=== PATIENT | male | born 1930 | race Caucasian/White ===

== ENCOUNTER 2016-12-10 10:33 | Inpatient (IN) | payer OTHER ==
[2016-12-10] MEDS: Sodium Chloride 0.9% 1,000 ML PRIMARY IV ONE ×3 (10:33→13:45)
[2016-12-10] MEDS ORDERED: NORMAL SALINE 10 ML SYRINGE FLUSH IVP PRN ×2 (10:49→15:15)
[2016-12-10 10:59] LABS: BASOPHILS # (AUTO) 0.04 10*3/UL; BASOPHILS % (AUTO) 0.5 % (0-1); EOSINOPHILS # (AUTO) 0.01 10*3/UL; EOSINOPHILS % (AUTO) 0.1 % (0-8); HEMATOCRIT 44.4 % (42.0-52.0); HEMOGLOBIN 14.8 g/dL (14.0-18.0); LYMPHOCYTES # (AUTO) 0.99 10*3/uL; MEAN CORPUSCULAR HEMOGLOBIN 31.4 PG (27-31); MEAN CORPUSCULAR HGB CONC 33.3 g/dL (33-37); MEAN PLATELET VOLUME 9.7 FL (7.4-12.2); MONOCYTES # (AUTO) 0.87 10*3/UL (0.3-0.8); MONOCYTES % (AUTO) 11.4 % (5-15); NEUTROPHILS # (AUTO) 5.65 10*3/UL; NEUTROPHILS % (AUTO) 74.5 % (50-80); RED BLOOD COUNT 4.72 10^6/uL (4.70-6.10)
[2016-12-10 11:01] LABS: PLATELET MORPHOLOGY COMMENT NORMAL MORPHOLOGY (NORM); RBC MORPHOLOGY COMMENT NORMAL MORPHOLOGY (NORM); WBC MORPHOLOGY COMMENT NORMAL MORPHOLOGY (NORM)
--- NOTE | 2016-12-10 11:03 | EKG ---
[address] [address] Measurements Intervals Hundred Rate: 102 P: TN: 0 QRS: 38 QRSD: 81 T: 76 QT: 344 QTc: 403 Interpretive Statements ATRIAL FIBRILLATION WITH RAPID VENTRICULAR RESPONSE LOW QRS VOLTAGE IN EXTREMITY LEADS ABNORMAL RHYTHM ECG No previous ECG available for comparison Electronically Signed On 12-10-16 12:09:55 MDT by Pawel Larson [id number]
[2016-12-10 11:20] LABS: BUN/CREATININE RATIO 67.14 (6-20); C-REACTIVE PROTEIN 6.2 mg/dL (0.0-0.9); CALCIUM 8.3 mg/dL (8.7-10.7); MAGNESIUM 2.1 mg/dL (1.6-2.4); SERUM ALBUMIN 2.9 g/dL (3.5-4.8)
[2016-12-10] MEDS ORDERED: Metoclopramide Inj 10 MG/2 ML VIAL IVP ONE (11:40)
[2016-12-10] MEDS ORDERED: cefTRIAXone Inj 1 GM in Sodium Chloride 0.9% 100 ML IV ONE (12:46)
--- NOTE | 2016-12-10 12:53 | DI ---
AP CHEST X-RAY, 12/10/2016 11:12 AM : Clinical History: Confusion. Weakness. Previous Exam: 11/29/2007. There is no acute soft tissue or bony abnormality. Heart size is normal. There is a patchy infiltrate involving the right lower lobe probably in the medial basal segment as well as in the left lower lob e, and the bilateral involvement is suggestive of aspiration pneumonitis. There is no pleural effusio n. Mediastinal structures are normal. There are no pulmonary nodules. Reading: There are bilateral lower lobe infiltrates, and this distribution is consistent with aspiration pneum onitis.
--- NOTE | 2016-12-10 12:53 | DI ---
CT HEAD SCAN WITHOUT IV CONTRAST, 12/10/2016 10:50 AM : Clinical History: Confusion. Previous Exam: 10/22/2007. Scans are obtained from the foramen magnum to the vertex without IV contrast. The fourth ventricle is of normal size, shape, position and contour. The third and lateral ventricles are moderately dilated but are otherwise normal. There is no acute hemorrhagic or bland infarct. The re is moderate to moderately severe cerebellar and moderate cerebral atrophy as well as mild to moder ate brainstem atrophy. This diffuse atrophic involvement is typically associated with chronic alcohol or Dilantin usage. There are no extracerebral mantles or shift of the midline structures. Bone windo w evaluation is normal. The paranasal sinuses are normal. READIN. There is no evidence of an acute hemorrhagic or bland infarct. 2. 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
--- NOTE | 2016-12-10 13:52 | PDOC ---
General Adult HPI - General Chief Complaint: Nausea / Vomiting / Diarrhea Stated Complaint: ILL, N/V/D X SEVERAL DAYS Date Seen by Provider: 12/10/16 Time Seen by Provider: 10:35 Source: POSITIVE: Patient, Spouse Nurse's Notes Reviewed & Considered: Yes EMS Report Reviewed & Considered: Verbal - History of Present Illness Initial Comment: The patient is an 86-year-old male who is brought to the emergency room department by ambulance for evaluation. EMS was initially called to evaluate the patient and do a welfare check at home. He apparently has some underlying dementia and currently lives with his . He is apparently normally ambulatory and even drives with his 's assistance still baseline. For the past week or so his states that he has had multiple diarrhea stools and has been incontinent of stool several times. He also seems to be increasingly weak. His is concerned that he is dehydrated and states that he does not drink enough water. He has not had any vomiting and denies any current pain on arrival. His does report that he has had a junky sounding cough for the past 2 or 3 days as well. She states that he is generally healthy. He has had a previous ulcer that required a partial resection of his stomach and they removed his gallbladder at that time as well. She states that he does not take any prescription medications and that they generally don't take medication other than supplements and vitamins. She is not aware that he has been running a fever and has not had any recent falls or trauma. She states that they did take a trip to [place] yesterday. She does note that he has been more confused since he has been ill this week. Have you received a tetanus shot in the past 10 years?: Unknown - Patient Home Medications Home Medications: Home Medications NK [No Home Medications Reported] 12/10/16 - Patient Allergies Allergies/Adverse Reactions: Allergies Allergy/AdvReac Type Severity Reaction Status Date / Time No Known Allergies Allergy Verified 12/10/16 10:39 Past Medical History - heen HEENT History: Denies History Cardiovascular History: Denies History Respiratory History: Denies History Gastrointestinal History: Denies History Genitourinary History: Denies History Endocrine History: Denies History Musculoskeletal History: Denies History Prosthesis or Implant: No Neurological History: Dementia Blood Disorders: Denies History Psychiatric History: Denies History Male Reproductive History: Denies History Cancer History: Denies History In Past Year Been Physically Harmed or Verbally Threatened: No History of MDRO: Unknown Tobacco Use: Never Smoker Alcohol Use: Rarely Substance Use Type: None Previous Surgical History: No Significant Family History: No pertinent family hx Past Medical History Reviewed: Reviewed - No Changes ROS - Limitations ROS Limitations: Clinical Condition Constitution: DENIES: Chills, Fever Cardiovascular: DENIES: Chest Pain, Heart Palpitations, Edema Respiratory: REPORTS: Cough Non Productive. DENIES: Shortness Of Breath Neurological: REPORTS: Confusion, Weakness (Generalized weakness, no focal weakness). DENIES: Numbness Gastrointestinal: REPORTS: Diarrhea. DENIES: Abdominal Pain, Vomitting, Bloody Stools Endocrine: REPORTS: Fatigue Musculoskeletal: REPORTS: Denies MS Symptoms Genitourinary: REPORTS: Denies Symptoms Eyes: REPORTS: Denies Symptoms ENT: REPORTS: Denies Symptoms Skin: REPORTS: Rash (He does have redness to the perineum and genital region extending onto his legs) General Adult Exam - General Appearance General Appearance: POSITIVE: Other (The patient is awake and does answer questions, he does appear ill) - HEENT HEENT: POSITIVE: Head Inspection Nml, Eyes Inspection Nml, Pharynx Inspect. Nml , Dry Mucous Membranes - Neck Neck: POSITIVE: Normal Inspection. NEGATIVE: Lymphadenopathy - Respiratory Respiratory: POSITIVE: No Respiratory Distress, Other (He does have diminished breath sounds bilaterally and does have some rhonchi noted in the bases bilaterally as well as a junky sounding cough occasionally) - Cardiovascular Cardiovascular: POSITIVE: Regular Rate & Rhythm, No Murmur, No Gallop Peripheral Pulses: Dorsalis-pedis (R): 2+, Dorsalis-pedis (L): 2+ - Abdomen Abdomen: Soft: (All Quadrants), Denies Tenderness: (All Quadrants), No Distention: (All Quadrants) Additional Abdominal Details: Examination of the genitals and perineal region reveals marked excoriation and erythema and he was incontinent of stool here in the emergency department, the stool is loose brown stool. - Back Back: POSITIVE: Normal Inspection - Extremities Extremity: Normal ROM: (All Extremities), Normal Inspection: (All Extremities) - Neurological / Psychological Neurological: POSITIVE: Other (No focal neurologic deficits) General Adult Progress - Results Reviewed by me Lab Results:: Laboratory Results 12/10/16 12/10/16 Range/Units 10:57 12:13 WBC 7.60 (4.8-10.8) 10^3/uL RBC 4.72 (4.70-6.10) 10^6/uL Hgb 14.8 (14.0-18.0) g/dL Hct 44.4 (42.0-52.0) % MCV 94.1 H (80-90) FL MCH 31.4 H (27-31) PG MCHC 33.3 (33-37) g/dL RDW Std Deviation 49.7 (39-50) fL RDW Coeff of Mohan 14.7 H (11.5-14.5) % Plt Count 221 (140-350) 10*3/uL MPV 9.7 (7.4-12.2) FL Immature Gran % (Auto) 0.5 (0-5) % Neut % (Auto) 74.5 (50-80) % Lymph % (Auto) 13.0 (10-50) % [place] % (Auto) 11.4 (5-15) % Eos % (Auto) 0.1 (0-8) % Baso % (Auto) 0.5 (0-1) % Immature Gran # (Auto) 0.04 10*3/UL Neut # (Auto) 5.65 10*3/UL Lymph # (Auto) 0.99 10*3/uL [place] # (Auto) 0.87 H (0.3-0.8) 10*3/UL Eos # (Auto) 0.01 10*3/UL Baso # (Auto) 0.04 10*3/UL WBC Morphology Comment Normal morphology (NORM) Plt Morphology Comment Normal morphology (NORM) RBC Morph Comment Normal morphology (NORM) Sodium 142 (135-145) meq/L Potassium 4.4 (3.8-5.2) meq/L Chloride 109 (98-112) meq/L Carbon Dioxide 25 (23-33) meq/L Anion Gap 8 (5-20) BUN 47 H (7-22) mg/dL Creatinine 0.7 (0.70-1.50) mg/dL Estimated GFR (>60 ml/min/1.73m(2)) BUN/Creatinine Ratio 67.14 H (6-20) Glucose 96 (78-110) mg/dL Calculated Osmolality 305.0 H (267-292) mOsm/kg Lactic Acid 1.1 (0.70-2.10) MMOL/L Calcium 8.3 L (8.7-10.7) mg/dL Magnesium 2.1 (1.6-2.4) mg/dL Total Bilirubin 0.8 (0.3-1.2) mg/dL AST 68 H (21-57) IU/L ALT 53 (21-72) IU/L Alkaline Phosphatase 69 (38-126) IU/L Total Creatine Kinase 109 (55-170) IU/L Troponin I 0.020 (< 0.040) ng/mL C-Reactive Protein 6.2 H (0.0-0.9) mg/dL Total Protein 5.5 L (6.1-8.0) g/dL Albumin 2.9 L (3.5-4.8) g/dL Globulin 2.6 (2.50-4.10) g/dL Albumin/Globulin Ratio 1.10 L (1.3-2.0) mg/g Amylase 81 (30-110) U/L Lipase 138 (23-300) IU/L TSH 1.95 (0.2700-4.2000) uIU/mL - Patient's Progress MDM / ED Course: The patient's oxygen saturations were initially in the low 90s on room air however did dip into the upper 80s and he was placed on O2 per nasal cannula. Blood cultures and lactate were obtained with initial IV start. The patient did appear to be clinically dehydrated and received a 1 L bolus of normal saline. His chest x-ray reveals bilateral lower lobe infiltrates concerning for aspiration per radiologist. CT scan of his head did not reveal any acute findings only chronic atrophy. His blood work does show an elevated BUN as well as low protein and is otherwise unremarkable. His EKG does not show any acute ST segment or T-wave changes and his troponin is normal. At this point the patient does appear to be markedly dehydrated and weak. Stool studies are pending. He also has some evidence of likely aspiration pneumonia. After discussion with Dr. Phillips the patient will be started on Rocephin and Zithromax and preparations are being made to admit the patient for further treatment. These findings and recommendations were discussed with the patient as well as his and they're in agreement with this plan. - Consult Counseled: POSITIVE: Patient, Family, RE: Lab Results, RE: Radiology Results, RE : DX Patient Care Time - Estimated PCT Patient Care Time (In Minutes): 45 Vital Signs - Recent Vital Signs Vital Signs: Vital Signs (Last 8 hours) Temp Pulse Resp BP Pulse Ox 12/10/16 10:33 96.4 F L 118 H 18 124/84 90 - VS Reviewed Vital Signs Reviewed: Yes Discharge Clinical Impression: Diarrhea, Dehydration, Pneumonia Discharge Disposition: Admit to Inpatient Condition: Fair Date Decision to Admit to Inpatient: 12/10/16 Time Decision to Admit to Inpatient: 12:40
[2016-12-10] MEDS ORDERED: ONDANSETRON 4 MG/2 ML VIAL IVP PRN (15:15)
[2016-12-10] MEDS ORDERED: LIDOCAINE W/ SODIUM BICARB 0.5 ML SYR SUBD PRN (15:15)
[2016-12-10] MEDS ORDERED: ACETAMINOPHEN 500 MG TABLET PO PRN (15:15)
[2016-12-10] MEDS ORDERED: NYSTATIN 15 GM POWDER TOPICAL ONE (15:39)
--- NOTE | 2016-12-10 16:41 | PDOC ---
History and Physical - History of Present Illness Date and Time of Service: 12/10/2016, 1635 Chief Complaint: The ambulance came to pick me up, diarrhea History of Present Illness: This is an 86-year-old male that has dementia obviously on examination. He is accompanied by his after being brought in by ambulance. The story goes that the patient's neighbor has been concerned about her overall well-being lately and he called the ambulance to do a check on them. When they got to the house, they found a house in disarray, and unlivable. They brought the patient in, and decreased fluid intake. No fevers or chills are described. The patient denies any abdominal pain. He has assorted history of alcohol use until about 7 or 8 years ago when he had a peptic ulcer rupture and had a gallbladder removed as well. He has not had any alcohol since that time. The patient reportedly has a shuffling gait, but it was difficult to tease out any history as to whether or not the patient has dyskinesia consistent with Parkinson's disease. All that being said, the patient cannot provide any history and is limited because of his dementia. A CT of the head was done in the emergency room and it was negative for any acute bleed. Chest x-ray was also done and it appeared negative. The patient was noted on examination to have severe excoriations of the testicular area, groin, perirectal area and lower back consistent with yeast dermatitis. Exam did not reveal epididymitis. Past Medical History Medical History: 1. Peptic ulcer disease status post perforation repair. 2. Dementia. 3. Urinary incontinence, probably related to BPH Surgical History: 1. Peptic ulcer repair. 2. Cholecystectomy. 3. Per my review of the medical history, the patient had a TURP procedure of some type Pertinent Family History: Father of prostate cancer and neither the patient nor his know what his mother passed on from. Past Social History: Does not smoke. for over 40 years. No children. No family other than his . Had a history of alcohol use but has not had any alcohol in the last 7 years or so. Tobacco Use: Never Smoker Substance Use Type: None Alcohol Use: None Medication / Allergies Home Medications: Home Medications Medication Instructions Recorded Confirmed Type NK [No Home Medications Reported] 12/10/16 12/10/16 History Allergies/Adverse Reactions: Allergies Allergy/AdvReac Type Severity Reaction Status Date / Time No Known Allergies Allergy Verified 12/10/16 15:16 Review of Systems - Review of Systems ROS Unobtainable: Due to Mental Status (There is very difficult to obtain a review systems due to patient having underlying dementia. Information I obtained was in combination with the patient, and his .) - Constitutional Constitutional: REPORTS: General Health Poor, Malaise, Other (Decreased appetite , decreased fluid intake) - Gastrointestinal Gastrointestinal / Abdominal: REPORTS: Diarrhea - Genitourinary Genitourinary: REPORTS: Pain (Primarily in the testicular area and groin area.) , Incontinence - Neurological Neurologic: REPORTS: Difficulty Walking (Shuffling gait) Exam - Vitals Vital Signs: Vital Signs Temperature 97.0 F Temperature Source Temporal Artery Scan Pulse Rate [Pulse Oximeter 84 Right] Respiratory Rate 18 Blood Pressure [Left Arm] 121/79 Pulse Ox 92 Oxygen Delivery Method Room Air Height 5 ft 10 in Weight 150 lb - General General Appearance: POSITIVE: No Acute Distress, Cooperative - Head Head Exam: POSITIVE: Normal Inspection, Normocephalic, Atraumatic - Eye Eye Exam: POSITIVE: No Scleral Icterus - ENT ENT Exam: POSITIVE: Mucous Membranes Dry - Neck Neck Exam: POSITIVE: Normal Inspection, No Tenderness, No Thyromegaly - Respiratory Respiratory Exam: POSITIVE: Clear to Auscultation - Bilaterally, Breathing Non Labored - Cardiovascular Cardiovascular Exam: POSITIVE: RRR, No Murmur, No Clicks, No Gallops, No Rubs, No JVD - GI/Abdominal GI/Abdominal Exam: POSITIVE: Normal Bowel Sounds, Non Tender, Non Distended, Soft - Rectal Rectal Exam: POSITIVE: Deferred - External Exam: POSITIVE: Erythema, Ecchymosis Exam: POSITIVE: Scrotal Swelling, Testicular Veritical Lie - Extremities Extremities Exam: POSITIVE: No Edema Present, No Cyanosis Present, Clubbing Present - Back Back Exam: POSITIVE: No CVA Tenderness, Rash Noted - Neurological Neurological Exam: POSITIVE: Alert, No Facial Droop, Speech Intact / Clear, Moves All Extremities Equally - Psychiatric Psychiatric Exam: POSITIVE: Flat Affect - Integumentary Integumentary Exam: POSITIVE: Rash (Consistent with yeast dermatitis.) Results - Labs CBC and BMP: 12/10/16 10:57 12/10/16 10:57 Labs - Last 24 Hours: Laboratory Results 12/10/16 12/10/16 Range/Units 10:57 12:13 WBC 7.60 (4.8-10.8) 10^3/uL RBC 4.72 (4.70-6.10) 10^6/uL Hgb 14.8 (14.0-18.0) g/dL Hct 44.4 (42.0-52.0) % MCV 94.1 H (80-90) FL MCH 31.4 H (27-31) PG MCHC 33.3 (33-37) g/dL RDW Std Deviation 49.7 (39-50) fL RDW Coeff of Mohan 14.7 H (11.5-14.5) % Plt Count 221 (140-350) 10*3/uL MPV 9.7 (7.4-12.2) FL Immature Gran % (Auto) 0.5 (0-5) % Neut % (Auto) 74.5 (50-80) % Lymph % (Auto) 13.0 (10-50) % [place] % (Auto) 11.4 (5-15) % Eos % (Auto) 0.1 (0-8) % Baso % (Auto) 0.5 (0-1) % Immature Gran # (Auto) 0.04 10*3/UL Neut # (Auto) 5.65 10*3/UL Lymph # (Auto) 0.99 10*3/uL [place] # (Auto) 0.87 H (0.3-0.8) 10*3/UL Eos # (Auto) 0.01 10*3/UL Baso # (Auto) 0.04 10*3/UL WBC Morphology Comment Normal morphology (NORM) Plt Morphology Comment Normal morphology (NORM) RBC Morph Comment Normal morphology (NORM) Sodium 142 (135-145) meq/L Potassium 4.4 (3.8-5.2) meq/L Chloride 109 (98-112) meq/L Carbon Dioxide 25 (23-33) meq/L Anion Gap 8 (5-20) BUN 47 H (7-22) mg/dL Creatinine 0.7 (0.70-1.50) mg/dL Estimated GFR (>60 ml/min/1.73m(2)) BUN/Creatinine Ratio 67.14 H (6-20) Glucose 96 (78-110) mg/dL Calculated Osmolality 305.0 H (267-292) mOsm/kg Lactic Acid 1.1 (0.70-2.10) MMOL/L Calcium 8.3 L (8.7-10.7) mg/dL Magnesium 2.1 (1.6-2.4) mg/dL Total Bilirubin 0.8 (0.3-1.2) mg/dL AST 68 H (21-57) IU/L ALT 53 (21-72) IU/L Alkaline Phosphatase 69 (38-126) IU/L Total Creatine Kinase 109 (55-170) IU/L Troponin I 0.020 (< 0.040) ng/mL C-Reactive Protein 6.2 H (0.0-0.9) mg/dL Total Protein 5.5 L (6.1-8.0) g/dL Albumin 2.9 L (3.5-4.8) g/dL Globulin 2.6 (2.50-4.10) g/dL Albumin/Globulin Ratio 1.10 L (1.3-2.0) mg/g Amylase 81 (30-110) U/L Lipase 138 (23-300) IU/L TSH 1.95 (0.2700-4.2000) uIU/mL - EKG Data -: EKG Interpreted by Me - EKG Data EKG Interpretation: Other (Could be atrial fibrillation. P waves are difficult to see. Sounded regular on exam.) - Imaging Status: Image Reviewed by Me (I looked at the head CT, I think it's consistent with atrophy, but no acute bleed. I looked at the chest x-ray, it does appear that there is a positive psoas sign along the right heart border that could be consistent with a pneumonia in the lower lobe.) AFib Stroke Risk Screening - AFib Stroke Risk (CHADS-VASc) Atrial Fibrillation Ischemic Stroke Risk Factors: Age 75 years or older (This was noted on EKG. We will discuss with the patient and determine best medication for him.) CHADS-VASc Score (A-Fib Stroke Risk Score): 2 CHADS-VASc Risk: High Risk Assessment and Plan - Patient Problems (1) Pneumonia Current Visit: Yes Status: Acute Qualifiers: Pneumonia type: due to unspecified organism Laterality: right Lung location: lower lobe of lung Qualified Description: Pneumonia of right lower lobe due to infectious organism Qualifier Code(s): (J18.1) Lobar pneumonia, unspecified organism (2) Dehydration Current Visit: Yes Status: Acute (3) Diarrhea Current Visit: Yes Status: Acute Qualifiers: Diarrhea type: unspecified type Qualified Description: Diarrhea, unspecified type Qualifier Code(s): (R19.7) Diarrhea, unspecified (4) Dementia Current Visit: Yes Status: Acute Qualifiers: Dementia type: Alzheimer's disease Alzheimer's disease onset: late- onset Dementia behavioral disturbance: without behavioral disturbance Qualified Description: Late onset Alzheimer's disease without behavioral disturbance Qualifier Code(s): (G30.1) Alzheimer's disease with late onset , (F02.80) Dementia in other diseases classified elsewhere without behavioral disturbance (5) Urinary incontinence Current Visit: Yes Status: Acute Qualifiers: Urinary Incontinence type: unspecified incontinence Qualified Description: Urinary incontinence, unspecified type Qualifier Code(s): ( R32) Unspecified urinary incontinence - Assessment / Plan Additional Assessment/Plan Details: Admit the patient, start antibiotics for pneumonia and this may also cover potential infectious diarrhea strains. Will also get stool studies. Get a CT scan of the abdomen and pelvis to make sure there is no explanation for the diarrhea. Get flu studies. Oxygen when necessary. For the yeast dermatitis start nystatin powder. I discussed CODE STATUS with the patient and his in detail going to the risks and benefits of the procedure and after hearing the potential risks both the patient and his state they would not want the procedure done. He is DO NOT RESUSCITATE. Reportedly, the home is not habitable at this time, and Department of family services is now involved. We'll have case management work with the patient. We discussed plan above with the patient, his , and they agreed.
[2016-12-10] MEDS ORDERED: Influenza 16-17 Vaccine(4yrs+) 45 MCG/0.5 ML SYRINGE IM ONE (16:56)
[2016-12-10] MEDS ORDERED: PNEUMOCOCCAL 23 VACCINE 25 MCG/0.5 ML VIAL IM SCH (17:00)
[2016-12-10] MEDS: HEPARIN 5000 UNIT/1 ML SUBCUT SCH (18:15)
[2016-12-10 18:35] LABS: BILIRUBIN,URINE NEGATIVE (NEG); CLARITY,URINE CLEAR (CLEAR); COLOR,URINE YELLOW; GLUCOSE, URINE (UA) NEGATIVE (NEG); NITRATE,URINE NEGATIVE (NEG); OCCULT BLOOD,URINE Trace-intact (NEG); PROTEIN,URINE 30 mg/dl (NEG); UROBILINOGEN,URINE 0.2 EU/dL (0.2)
[2016-12-10 18:36] LABS: URINE SAMPLE TYPE CATH SPECIMEN
[2016-12-10 18:43] LABS: RBC,URINE 0-3 /hpf; SQUAMOUS EPITHELIAL CELL,UR RARE; WBC,URINE 0-2
--- NOTE | 2016-12-10 20:29 | DI ---
CT ABDOMEN SCAN WITHOUT IV CONTRAST, 12/10/2016 6:48 PM : Clinical History: Diarrhea. Previous Exam: 10/22/2007. Scans are performed from the lower lung bases through the liver and kidneys without IV contrast. Sagi ttal and coronal reformatted images are generated. Comment: This study was initially ordered as a CT scan of the abdomen and pelvis with IV contrast. Ho wever, this patient has no peripheral IV access and the exam was changed to a study without IV contra st. There are bilateral lower lobe infiltrates, predominantly in the posterior basal segment of the right lower lobe and also of the left lower lobe. Both lower lobes are associated with bronchiectasis. The re is a small right pleural effusion. 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 The liver is normal. The patient is status post cholecystectomy. There is no abno rmality of the spleen, pancreas, and adrenal glands. Both kidneys are normal in size, shape, position and contour. There is no hydronephrosis or hydroureter. Bilateral small peripelvic renal cysts are p resent. No renal or ureteral calculi are present. There is a large laminated bladder calculus that me asures 30 x 30 x 40 mm, and this was not present on the previous exam. There are no abnormal retrocru ral or periaortic nodes. No ascites is present. READIN. Normal CT abdomen scan. 2. Bilateral lower lobe pneumonia with a small right pleural effusion. These findings are consistent with aspiration pneumonia. There is also bilateral lower lobe chronic bronchiectasis. 3. Both kidneys and ureters are normal. There is a large 30 x 30 x 40 mm bladder calculus that is ne w since the previous exam. CT PELVIS SCAN WITHOUT IV CONTRAST, 12/10/2016 6:48 PM : Clinical History: See above. Previous Exam: 10/22/2007. Scans are performed from the inferior margin of the liver and kidneys to the symphysis pubis without IV contrast. There is no free fluid collection and there is no adenopathy. The appendix is normal. The small bowel , terminal ileum, and ileocecal valve are normal. The colon is also normal. There are no hernias. The re is osteoporosis. READING: Normal CT pelvis scan.
[2016-12-10] MEDS: NYSTATIN 15 GM POWDER TOPICAL SCH (21:17)
[2016-12-11] MEDS: HEPARIN 5000 UNIT/1 ML SUBCUT SCH ×2 (00:12→08:01)
[2016-12-11 06:40] LABS: BASOPHILS # (AUTO) 0.02 10*3/UL; BASOPHILS % (AUTO) 0.3 % (0-1); EOSINOPHILS # (AUTO) 0.06 10*3/UL; EOSINOPHILS % (AUTO) 0.9 % (0-8); HEMATOCRIT 43.8 % (42.0-52.0); HEMOGLOBIN 14.5 g/dL (14.0-18.0); LYMPHOCYTES # (AUTO) 1.19 10*3/uL; MEAN CORPUSCULAR HEMOGLOBIN 31.3 PG (27-31); MEAN CORPUSCULAR HGB CONC 33.1 g/dL (33-37); MEAN PLATELET VOLUME 9.9 FL (7.4-12.2); MONOCYTES # (AUTO) 0.85 10*3/UL (0.3-0.8); MONOCYTES % (AUTO) 12.7 % (5-15); NEUTROPHILS # (AUTO) 4.49 10*3/UL; NEUTROPHILS % (AUTO) 67.3 % (50-80); RED BLOOD COUNT 4.64 10^6/uL (4.70-6.10)
[2016-12-11 06:52] LABS: PLATELET MORPHOLOGY COMMENT NORMAL MORPHOLOGY (NORM); RBC MORPHOLOGY COMMENT NORMAL MORPHOLOGY (NORM); WBC MORPHOLOGY COMMENT NORMAL MORPHOLOGY (NORM)
[2016-12-11 06:59] LABS: BUN/CREATININE RATIO 41.42 (6-20); CALCIUM 7.8 mg/dL (8.7-10.7)
[2016-12-11 08:27] VITALS: RESP 18
[2016-12-11] MEDS ORDERED: AZITHROMYCIN 250 MG TABLET PO SCH (09:00)
[2016-12-11] MEDS ORDERED: TRIAMCINOLONE ACETONIDE 0.1% 15 GM OINT TOPICAL SCH (09:00)
[2016-12-11] MEDS: NYSTATIN 15 GM POWDER TOPICAL SCH (09:54)
[2016-12-11] MEDS ORDERED: METOPROLOL SUCCINATE 25 MG SR 24H TABLET PO ONE (11:27)
[2016-12-11] MEDS ORDERED: PANTOPRAZOLE 40 MG TABLET PO ONE (11:27)
[2016-12-11 11:48] VITALS: TEMP 97.8
[2016-12-11] MEDS ORDERED: cefTRIAXone Inj 1 GM in Lidocaine Inj 1% 2.1 ML IM SCH (12:00)
[2016-12-11] MEDS ORDERED: Influenza 16-17 Vaccine(4yrs+) 45 MCG/0.5 ML SYRINGE IM ONE (12:11)
[2016-12-11] MEDS ORDERED: cefTRIAXone Inj 1 GM in Sodium Chloride 0.9% 100 ML IV SCH (12:30)
[2016-12-11] MEDS ORDERED: cefTRIAXone Inj 2 GM in Sodium Chloride 0.9% 100 ML IV SCH (12:30)
--- NOTE | 2016-12-11 14:28 | DCSUMMARY ---
Hospitalization Summary Admit Date: 12/10/16 Discharge Date: 12/11/16 Primary Diagnosis:: bladder stone, pneumonia, dementia Hospital Course: This is an 86-year-old male that was brought in after a neighbor called to have people check on the welfare of the patient and his . The patient had had some diarrhea that had been fairly persistent and of fairly bad rash. He was brought in by ambulance, admitted, and was clearly demented. Workup revealed an aspiration pneumonia versus acne acquired pneumonia bilaterally. He is placed on Rocephin and Zithromax for that. In addition, due to the diarrhea complaints and did do a CT scan of the abdomen and pelvis and a CT scan of the pelvis showed a large bladder stone. We also found atrial fibrillation, newly recognized but rate controlled at this point. He had a history of prior peptic ulcer disease that required surgery, however that was in 2007 and his risk of stroke is around 2.2% by CHADVASC 2 score. He has a yeast dermatitis in the perineal region that his states has already started to improve with local topical nystatin powder. Given this constellation of findings, and the bladder stone, and the complex social situation, I spoke with the urologist in [place] who stated that if the hospitalist was willing to admit, we could consider transfer there so the bladder stone could be treated. I think it puts him at a I think the bladder stone may put the patient at risk of urine infection and sepsis and so forth, and it is worth treating that, and I told the hospitalist today that we would be willing to take the patient back on her swing bed at the conclusion of the hospital stay there. So the current status of each problem is as follows: 1. Pneumonia, on Rocephin and Zithromax, day 2. Minimal oxygen requirement of 1 L per nasal cannula and satting at 93%. 2. Bladder stone, probably needs urologic rate Of the stone. The patient has had worsening urinary incontinence it's been complained about several times in the clinic, and this could be the reason. 3. Atrial fibrillation, I suspect chronic intermittent but don't know for sure. Placed on Toprol XL 25 mg daily, aspirin for stroke prevention. Her history of peptic ulcer disease, I'm also starting Protonix to help give some GI protection. 4. Yeast dermatitis, this is improving with nystatin powder. I do not think there is epididymitis. He did not have overt testicular pain with palpation. 5. Dementia, advanced. Ultimately, it is our hope here that the housing situation will be fixed for the patient and his , and although he would make a much better candidate for half-way, I don't think that the patient and his will opt for that and it may be that we can do some strengthening and conditioning on our swing bed at the conclusion of his hospital stay in [place] and then transition to the home. I greatly appreciate the assistance of both Dr. Martinez and the hospitalist today. Spoke with the family in detail and they are in agreement with the plan. Today, no complaints of chest pain, no complaints of shortness breath, poor appetite. No nausea or vomiting and diarrhea has improved and the rash has already improved. Assessment and Plan: 1. As per discharge assessments noted 2. Disposition: Patient is discharged to [facility] 3. Condition on discharge, stable and improved. However, based on the presence of the bladder stone and other issues, his condition certainly could deteriorate. 4. Diet: regular diet 5. Activities: As per [facility] 6. Follow-Up: 1. Dr. Rivers postdischarge from [facility] 2. 7. Medications at the Time of Discharge: Active Medications Generic Name Dose Route Start Last Admin Trade Name Freq PRN Reason Stop Dose Admin Acetaminophen 500 mg 12/10/16 15:15 Tylenol PO Q4H PRN Fever Aspirin 81 mg 12/12/16 09:00 Aspirin Ec PO DAILY TJ Azithromycin 250 mg 12/11/16 09:00 12/11/16 09:53 Zithromax PO 12/14/16 23:59 250 mg DAILY TJ Administration Heparin Sodium (Porcine) 5,000 unit 12/10/16 15:15 12/11/16 08:01 Heparin Inj SUBCUT 5,000 unit Q8H TJ Administration Sodium Chloride 25 mls @ 200 mls/hr 12/10/16 15:15 Normal Saline 0.9% IV .Post Infusion PRN No Primary IV for Flush ONLY Potassium Chloride/Sodium Chloride 1,000 mls @ 125 mls/hr 12/10/16 15:15 08:01 Pot Chl 20meq + Ns PRIMARY IV 125 mls/hr .Q8H TJ Administration Ceftriaxone Sodium 2 gm/ 100 mls @ 200 mls/hr 12/11/16 12:30 12/11/16 12:20 Sodium Chloride IV 200 mls/hr Q24H TJ Administration Lidocaine HCl 0.5 ml 12/10/16 15:15 Lidocaine Buffered Inj SUBD ONCE PRN IV Starts Metoprolol Succinate 25 mg 12/12/16 09:00 Toprol Xl PO DAILY TJ Nystatin 1 applic 12/10/16 21:00 12/11/16 09:54 Mycostatin Powder TOPICAL 1 applic BID TJ Administration Ondansetron HCl 4 mg 12/10/16 15:15 Zofran Inj IVP Q6H PRN NAUSEA / VOMITING Pantoprazole Sodium 40 mg 12/12/16 07:00 Protonix PO AC BK TJ Pneumococcal Polyvalent Vaccine 0.5 ml 12/10/16 17:00 Pneumovax 23 Inj IM .ONCE TJ Sodium Chloride 5 - 20 ml 12/10/16 15:15 12/10/16 18:14 Saline Flush IVP 10 ml BID PRN Administration Flush Triamcinolone Acetonide 1 applic 12/11/16 09:00 12/11/16 09:53 Kenalog Ointment 0.1% TOPICAL 1 applic DAILY TJ Administration 8. Time, care, counseling and coordination of care for this discharge is greater than 30 minutes. Exam - Vitals Vital Signs: Vital Signs Temperature 97.8 F Temperature Source Temporal Artery Scan Pulse Rate [Apical] 88 Pulse Rate [Pulse Oximeter 101 Right] Pulse Rate 108 Respiratory Rate 18 Blood Pressure [Right Arm] 106/62 Blood Pressure [Left Arm] 118/73 Pulse Ox 93 Oxygen Flow Rate 1 Oxygen Delivery Method Nasal Cannula Height 5 ft 10 in Weight 152 lb 3.2 oz - General General Appearance: POSITIVE: No Acute Distress, Cooperative - Eye Eye Exam: POSITIVE: No Scleral Icterus - ENT ENT Exam: POSITIVE: Mucous Membranes Dry - Respiratory Respiratory Exam: POSITIVE: Breathing Non Labored, Coarse Breath Sounds - Cardiovascular Cardiovascular Exam: POSITIVE: No Murmur, No Clicks, No Gallops, No Rubs, PMI Non-Displaced (Consistent with atrial fibrillation), Irregular Rhythm, No JVD - GI/Abdominal GI/Abdominal Exam: POSITIVE: Normal Bowel Sounds, Non Tender, Non Distended, Soft - Extremities Extremities Exam: POSITIVE: No Clubbing Present, No Edema Present, No Cyanosis Present - Neurological Neurological Exam: POSITIVE: Alert, No Facial Droop, Speech Intact / Clear, Moves All Extremities Equally Data Perinent Studies: Laboratory Results 12/10/16 12/10/16 12/10/16 Range/Units 10:57 12:13 18:35 WBC 7.60 (4.8-10.8) 10^3/uL RBC 4.72 (4.70-6.10) 10^6/uL Hgb 14.8 (14.0-18.0) g/dL Hct 44.4 (42.0-52.0) % MCV 94.1 H (80-90) FL MCH 31.4 H (27-31) PG MCHC 33.3 (33-37) g/dL RDW Std Deviation 49.7 (39-50) fL RDW Coeff of Mohan 14.7 H (11.5-14.5) % Plt Count 221 (140-350) 10*3/uL MPV 9.7 (7.4-12.2) FL Immature Gran % (Auto) 0.5 (0-5) % Neut % (Auto) 74.5 (50-80) % Lymph % (Auto) 13.0 (10-50) % [place] % (Auto) 11.4 (5-15) % Eos % (Auto) 0.1 (0-8) % Baso % (Auto) 0.5 (0-1) % Immature Gran # (Auto) 0.04 10*3/UL Neut # (Auto) 5.65 10*3/UL Lymph # (Auto) 0.99 10*3/uL [place] # (Auto) 0.87 H (0.3-0.8) 10*3/UL Eos # (Auto) 0.01 10*3/UL Baso # (Auto) 0.04 10*3/UL WBC Morphology Comment Normal morphology (NORM) Plt Morphology Comment Normal morphology (NORM) RBC Morph Comment Normal morphology (NORM) Sodium 142 (135-145) meq/L Potassium 4.4 (3.8-5.2) meq/L Chloride 109 (98-112) meq/L Carbon Dioxide 25 (23-33) meq/L Anion Gap 8 (5-20) BUN 47 H (7-22) mg/dL Creatinine 0.7 (0.70-1.50) mg/dL Estimated GFR (>60 ml/min/1.73m(2)) BUN/Creatinine Ratio 67.14 H (6-20) Glucose 96 (78-110) mg/dL Calculated Osmolality 305.0 H (267-292) mOsm/kg Lactic Acid 1.1 (0.70-2.10) MMOL/L Calcium 8.3 L (8.7-10.7) mg/dL Magnesium 2.1 (1.6-2.4) mg/dL Total Bilirubin 0.8 (0.3-1.2) mg/dL AST 68 H (21-57) IU/L ALT 53 (21-72) IU/L Alkaline Phosphatase 69 (38-126) IU/L Total Creatine Kinase 109 (55-170) IU/L Troponin I 0.020 (< 0.040) ng/mL C-Reactive Protein 6.2 H (0.0-0.9) mg/dL Total Protein 5.5 L (6.1-8.0) g/dL Albumin 2.9 L (3.5-4.8) g/dL Globulin 2.6 (2.50-4.10) g/dL Albumin/Globulin Ratio 1.10 L (1.3-2.0) mg/g Amylase 81 (30-110) U/L Lipase 138 (23-300) IU/L TSH 1.95 (0.2700-4.2000) uIU/mL Ur Collection Type Cath specimen Urine Color Yellow Urine Clarity Clear (CLEAR) Urine pH 6.0 (5.0-8.5) Ur Specific [place] 1.020 (1.005-1.030) Urine Protein 30 (NEG) mg/dl Urine Glucose (UA) Negative (NEG) mg/dL Urine Ketones 15 (NEG) Urine Occult Blood Trace-intact H (NEG) Urine Nitrate Negative (NEG) Urine Bilirubin Negative (NEG) Urine Urobilinogen 0.2 (0.2) EU/dL Ur Leukocyte Esterase Negative (NEG) Urine RBC 0-3 (NONE) /hpf Urine WBC 0-2 (NONE) Ur Squamous Epith Cells Rare (NONE) Ur Renal Epithelial Cell None (NONE) Urine Crystals None Urine Bacteria None (NONE) Urine Casts None (NONE) Urine Mucus None (NONE) Urine Trichomonas None (NONE) Urine Yeast None (NONE) Ur Culture Indicated? Culture not set 12/11/16 Range/Units 05:38 WBC 6.68 (4.8-10.8) 10^3/uL RBC 4.64 L (4.70-6.10) 10^6/uL Hgb 14.5 (14.0-18.0) g/dL Hct 43.8 (42.0-52.0) % MCV 94.4 H (80-90) FL MCH 31.3 H (27-31) PG MCHC 33.1 (33-37) g/dL RDW Std Deviation 49.4 (39-50) fL RDW Coeff of Mohan 14.8 H (11.5-14.5) % Plt Count 229 (140-350) 10*3/uL MPV 9.9 (7.4-12.2) FL Immature Gran % (Auto) 1.0 (0-5) % Neut % (Auto) 67.3 (50-80) % Lymph % (Auto) 17.8 (10-50) % [place] % (Auto) 12.7 (5-15) % Eos % (Auto) 0.9 (0-8) % Baso % (Auto) 0.3 (0-1) % Immature Gran # (Auto) 0.07 10*3/UL Neut # (Auto) 4.49 10*3/UL Lymph # (Auto) 1.19 10*3/uL [place] # (Auto) 0.85 H (0.3-0.8) 10*3/UL Eos # (Auto) 0.06 10*3/UL Baso # (Auto) 0.02 10*3/UL WBC Morphology Comment Normal morphology (NORM) Plt Morphology Comment Normal morphology (NORM) RBC Morph Comment Normal morphology (NORM) Sodium 145 (135-145) meq/L Potassium 3.9 (3.8-5.2) meq/L Chloride 113 H (98-112) meq/L Carbon Dioxide 22 L (23-33) meq/L Anion Gap 10 (5-20) BUN 29 H (7-22) mg/dL Creatinine 0.7 (0.70-1.50) mg/dL Estimated GFR (>60 ml/min/1.73m(2)) BUN/Creatinine Ratio 41.42 H (6-20) Glucose 74 L (78-110) mg/dL Calculated Osmolality 304.0 H (267-292) mOsm/kg Lactic Acid (0.70-2.10) MMOL/L Calcium 7.8 L (8.7-10.7) mg/dL Magnesium (1.6-2.4) mg/dL Total Bilirubin (0.3-1.2) mg/dL AST (21-57) IU/L ALT (21-72) IU/L Alkaline Phosphatase (38-126) IU/L Total Creatine Kinase (55-170) IU/L Troponin I (< 0.040) ng/mL C-Reactive Protein (0.0-0.9) mg/dL Total Protein (6.1-8.0) g/dL Albumin (3.5-4.8) g/dL Globulin (2.50-4.10) g/dL Albumin/Globulin Ratio (1.3-2.0) mg/g Amylase (30-110) U/L Lipase (23-300) IU/L TSH (0.2700-4.2000) uIU/mL Ur Collection Type Urine Color Urine Clarity (CLEAR) Urine pH (5.0-8.5) Ur Specific [place] (1.005-1.030) Urine Protein (NEG) mg/dl Urine Glucose (UA) (NEG) mg/dL Urine Ketones (NEG) Urine Occult Blood (NEG) Urine Nitrate (NEG) Urine Bilirubin (NEG) Urine Urobilinogen (0.2) EU/dL Ur Leukocyte Esterase (NEG) Urine RBC (NONE) /hpf Urine WBC (NONE) Ur Squamous Epith Cells (NONE) Ur Renal Epithelial Cell (NONE) Urine Crystals Urine Bacteria (NONE) Urine Casts (NONE) Urine Mucus (NONE) Urine Trichomonas (NONE) Urine Yeast (NONE) Ur Culture Indicated? Patient Problems - Patient Problem List (1) Bladder stone Current Visit: Yes Status: Acute (2) Pneumonia Current Visit: Yes Status: Acute Qualifiers: Pneumonia type: due to unspecified organism Laterality: right Lung location: lower lobe of lung Qualified Description: Pneumonia of right lower lobe due to infectious organism Qualifier Code(s): (J18.1) Lobar pneumonia, unspecified organism (3) Atrial fibrillation Current Visit: Yes Status: Acute Comment: Suspect that this is chronic Qualifiers: Atrial fibrillation type: chronic Qualified Description: Chronic atrial fibrillation Qualifier Code(s): (I48.2) Chronic atrial fibrillation (4) Dehydration Current Visit: Yes Status: Resolved (5) Diarrhea Current Visit: Yes Status: Resolved Qualifiers: Diarrhea type: unspecified type Qualified Description: Diarrhea, unspecified type Qualifier Code(s): (R19.7) Diarrhea, unspecified (6) Dementia Current Visit: Yes Status: Acute Qualifiers: Dementia type: Alzheimer's disease Alzheimer's disease onset: late- onset Dementia behavioral disturbance: without behavioral disturbance Qualified Description: Late onset 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
[2016-12-12] MEDS ORDERED: PANTOPRAZOLE 40 MG TABLET PO SCH (07:00)
[2016-12-12] MEDS ORDERED: METOPROLOL SUCCINATE 25 MG SR 24H TABLET PO SCH (09:00)
[2016-12-12] MEDS ORDERED: ASPIRIN EC 81 MG TABLET PO SCH (09:00)
== END 2016-12-11 15:03 | disposition short-term general hospital (02) | DRG 693 ==
LOC: ER 10:33 → MED/SURG 12:58
PROVIDERS: ADMIT Family Medicine; ATTEND Family Medicine
DX: N21.0 Calculus in bladder (principal); E86.0 Dehydration; J18.9 Pneumonia, unspecified organism; F03.90 Unspecified dementia, unspecified severity, without behavioral disturbance, psychotic disturbance, mood disturbance, and anxiety; I48.91 Unspecified atrial fibrillation; B37.2 Candidiasis of skin and nail; R19.7 Diarrhea, unspecified; R32 Unspecified urinary incontinence
CPT/HCPCS: 36415; 70450; 71010; 74176; 80048; 80053; 81001; 81003; 82150; 82550; 82948; 83605; 83690; 83735; 84443; 84484; 85025; 86140; 87040; 87804; 90656; 93005; 93010; 94761; 96360; 99284; J0696; J1644; J7030; J7050

== ENCOUNTER → 2017-01-14 | Outpatient (CLI) | payer OTHER ==
[2017-01-14 17:22] LABS: HEMATOCRIT 44.4 % (42.0-52.0); MEAN CORPUSCULAR HEMOGLOBIN 31.9 PG (27-31); MEAN CORPUSCULAR HGB CONC 33.8 g/dL (33-37); MEAN CORPUSCULAR VOLUME 94.5 FL (80-90); MEAN PLATELET VOLUME 9.5 FL (7.4-12.2)
[2017-01-14 17:32] LABS: PLATELET MORPHOLOGY COMMENT NORMAL MORPHOLOGY (NORM); RBC MORPHOLOGY COMMENT NORMAL MORPHOLOGY (NORM); WBC MORPHOLOGY COMMENT NORMAL MORPHOLOGY (NORM)
[2017-01-14 17:42] LABS: BAND NEUTROPHILS % 0 % (0-10); BASOPHILS % (MANUAL) 4 % (0-1); EOSINOPHILS % (MANUAL) 6 % (0-8); LYMPHOCYTES % (MANUAL) 34 % (10-50); MONOCYTES % (MANUAL) 4 % (0-12); NEUTROPHILS % (MANUAL) 52 % (50-80)
== END ==
LOC: MOB LAB 15:05
PROVIDERS: ATTEND Internal Medicine
DX: E86.0 Dehydration (principal); N21.0 Calculus in bladder; R32 Unspecified urinary incontinence; I95.0 Idiopathic hypotension; F03.91 Unspecified dementia, unspecified severity, with behavioral disturbance
CPT/HCPCS: 36415; 85007; 99213; G0463

== ENCOUNTER → 2017-01-15 | Outpatient (CLI) | payer OTHER ==
[2017-01-15 17:35] LABS: BUN/CREATININE RATIO 31.42 (6-20)
== END ==
LOC: LAB 17:11
PROVIDERS: ATTEND Internal Medicine
DX: E86.0 Dehydration (principal); I95.0 Idiopathic hypotension
CPT/HCPCS: 80048

== ENCOUNTER → 2017-01-22 | Outpatient (CLI) | payer OTHER | LOC: MMPC 11:11 | PROVIDERS: ATTEND Nurse Practitioner | DX: H04.123 Dry eye syndrome of bilateral lacrimal glands (principal); F03.91 Unspecified dementia, unspecified severity, with behavioral disturbance; I95.0 Idiopathic hypotension; Z86.39 Personal history of other endocrine, nutritional and metabolic disease | CPT/HCPCS: 99214; G0463 ==

== ENCOUNTER → 2017-02-24 | Outpatient (CLI) | payer OTHER | LOC: MMPC 11:11 | PROVIDERS: ATTEND Internal Medicine | DX: R60.0 Localized edema (principal); R32 Unspecified urinary incontinence; H91.93 Unspecified hearing loss, bilateral; R41.89 Other symptoms and signs involving cognitive functions and awareness; I89.0 Lymphedema, not elsewhere classified; R15.9 Full incontinence of feces; I95.0 Idiopathic hypotension | CPT/HCPCS: 99213; G0463 ==